=== PATIENT | male | born 1980 | race African-American/Black ===

== ENCOUNTER 2022-06-22 16:18 | Emergency (ER) | payer SELFPAY ==
[2022-06-22] MEDS ORDERED: TETANUS & DIPHTHERIA TOX,ADULT 0.5 ML VIAL ONE (16:59)
[2022-06-22] MEDS ORDERED: LIDOCAINE 1% MPF 5 ML VIAL ONE (16:59)
--- NOTE | 2022-06-22 17:33 | EDPHYS ---
Physician Documentation [facility] Name: Darryl Gautam Age: 41 yrs Sex: Male : 1980 Arrival Date: 06/22/2022 Time: 16:18 Bed 11 Private MD: ED Physician Jeffrey Dubois HPI: 06/22 16:48 This 41 yrs old Black Male presents to ER via Ambulatory with complaints of Laceration jmm to Wrist. 16:48 Is a 41-year-old male with no chronic medical conditions presents emerged part with a jmm laceration to his left wrist. Patient states he accidentally cut himself in using box cutters. Patient is not up-to-date on tetanus immunization. Denies other injury. Historical: - Allergies: 16:48 No Known Allergies; cm9 - Home Meds: 16:48 None [Active]; cm9 - PSHx: 16:48 None; cm9 - Immunization history:: Client reports having NOT received the Covid vaccine. Last tetanus immunization: > 10 years ago unknown. - Social history:: Smoking status: Patient denies any tobacco usage or history of. Patient uses alcohol, only on a social basis. ROS: 16:48 Constitutional: Negative for fever, chills, and weight loss, Cardiovascular: Negative jmm for chest pain, palpitations, and edema, Respiratory: Negative for shortness of breath, cough, wheezing, and pleuritic chest pain. 16:48 Skin: Positive for laceration(s). 16:48 All other systems are negative. Exam: 16:48 Constitutional: This is a well developed, well nourished patient who is awake, alert, jmm and in no acute distress. Head/Face: atraumatic. Eyes: EOMI, no conjunctival erythema appreciated ENT: Moist Mucus Membranes Neck: Trachea midline, Supple Chest/axilla: Normal chest wall appearance and motion. Cardiovascular: Regular rate and rhythm. No edema appreciated Respiratory: Normal respirations, no respiratory distress appreciated Abdomen/GI: Non distended Back: Normal ROM 16:48 Musculoskeletal/extremity: Full range of motion appreciated to the left hand, full radial pulse, compartments are soft, sensation intact to all 5 fingers. Neurovascular intact. 16:48 Skin: 2 cm laceration noted to the left wrist on the radial side. 16:48 Neuro: Orientation: is normal, Mentation: is normal, Memory: is normal. 16:48 Psych: Behavior/mood is pleasant, cooperative. Vital Signs: 16:41 BP 152 / 99; Pulse 94; Resp 16; Temp 98; Pulse Ox 98% on R/A; Weight 97.52 kg; Height 5 cm9 ft. 9 in. ; Pain 2/10; 17:42 BP 138 / 84; Pulse 74; Resp 18; Pulse Ox 99% ; mb9 16:41 Body Mass Index 31.75 (97.52 kg, 175.26 cm) cm9 16:41 Pain Scale: Adult cm9 Laceration: 17:31 Wound Repair of 2cm ( 0.8in ) subcutaneous laceration to left wrist. Distal jmm neuro/vascular/tendon intact. Anesthesia: Local anesthetic administered with 3 mls of 1% lidocaine. Wound prep: Simple cleansing with hibiclenz by sc. Skin closed with 5 5-0 Prolene using simple sutures and sterile technique. Patient tolerated well. MDM: 16:48 Patient medically screened. jmm 20:41 Differential diagnosis: Laceration. Data reviewed: vital signs, nurses notes. jmm Counseling: I had a detailed discussion with the patient and/or guardian regarding: the historical points, exam findings, and any diagnostic results supporting the discharge/admit diagnosis, the need for outpatient follow up, to return to the emergency department if symptoms worsen or persist or if there are any questions or concerns that arise at home. ED course: Patient given wound infection return precautions.. 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 mb9 Exp: 08/05/2023. Lot #: [id number]. } Route: IM; Site: right deltoid; 17:42 Follow up: Response: (VIS) Vaccine information sheet provided today. Questions and/or herber9 concerns addressed. VIS edition date: Sep 30, 2020.; No adverse reaction 17:10 Drug: Lidocaine Infiltration (1 %) 20 ml Volume: 20 ml; Route: Infiltration; mb9 Disposition: 19:35 Co-signature as Attending Physician, Jeffrey TYLER was immediately available on-site ms3 in the Emergency Department for consultation in the care of the patient. Disposition Summary: 06/22/22 17:33 Discharge Ordered Location: Home pratima Condition: Stable pratima Diagnosis - Cutaneous laceration of the left wrist pratima Followup: ariana - With: Private Physician - When: 10 - 14 days - Reason: Staple/Suture removal Discharge Instructions: - Discharge Summary Sheet pratima - Laceration Care, Adult pratima Forms: - Medication Reconciliation Form [facility] - Thank You Letter pratima - Antibiotic Education pratima - Prescription Opioid Use [facility] Signatures: Missael Villaseñor PA PA jmm Sims, Marcus, DO DO ms3 Rupal Marin RN RN mb9 Donna Jackson RN RN cm9
--- NOTE | 2022-06-22 17:33 | ER ---
Nurse's Notes [facility] Name: Darryl Gautam Age: 41 yrs Sex: Male : 1980 Arrival Date: 06/22/2022 Time: 16:18 Bed 11 Private MD: Diagnosis: Cutaneous laceration of the left wrist Presentation: 06/22 16:41 Chief complaint: Patient states: Per pt report, at 1340 accidentally cut left wrist cm9 with box bender, came to ER for increased tingling in left fingers, full range of motion in left hand. Coronavirus screen: Vaccine status: Patient reports being unvaccinated. Ebola Screen: No symptoms or risks identified at this time. Initial Sepsis Screen: Does the patient meet any 2 criteria? No. Patient's initial sepsis screen is negative. Does the patient have a suspected source of infection? No. Patient's initial sepsis screen is negative. 16:41 Method Of Arrival: Ambulatory cm9 16:41 Risk Assessment: Do you want to hurt yourself or someone else? Patient reports no cm9 desire to harm self or others. Onset of symptoms was June 22, 2022. 16:41 Acuity: PANCHO 4 cm9 Triage Assessment: 16:48 General: Appears in no apparent distress. Behavior is calm, cooperative, appropriate cm9 for age. Pain: Complains of pain in left hand and left arm Pain currently is 2 out of 10 on a pain scale. 16:48 Neuro: Level of Consciousness is awake, alert, obeys commands, Oriented to person, cm9 place, time, situation, Moves all extremities. Intact Tingling in left hand. Cardiovascular: Capillary refill < 3 seconds Patient's skin is warm and dry. Respiratory: Airway is patent Respiratory effort is even, unlabored. Injury Description: Laceration sustained to left hand and left wrist. Historical: - Allergies: 16:48 No Known Allergies; cm9 - Home Meds: 16:48 None [Active]; cm9 - PSHx: 16:48 None; cm9 - Immunization history:: Client reports having NOT received the Covid vaccine. Last tetanus immunization: > 10 years ago unknown. - Social history:: Smoking status: Patient denies any tobacco usage or history of. Patient uses alcohol, only on a social basis. Screenin:04 [facility] ED Fall Risk Assessment (Adult) History of falling in the last 3 months, mb9 including since admission No falls in past 3 months (0 pts) Confusion or Disorientation No (0 pts) Intoxicated or Sedated No (0 pts) Impaired Gait No (0 pts) Mobility Assist Device Used No (0 pt) Altered Elimination No (0 pt) Score/Fall Risk Level 0 - 2 = Low Risk Oriented to surroundings, Maintained a safe environment, Educated pt \T\ family on fall prevention, incl call for assistance when getting out of bed. Abuse screen: Denies threats or abuse. Nutritional screening: No deficits noted. Tuberculosis screening: No symptoms or risk factors identified. Assessment: 17:04 Reassessment: SEE TRIAGE ASSESSMENT. mb9 17:42 Reassessment: No changes from previously documented assessment. Patient and/or family mb9 updated on plan of care and expected duration. Pain level reassessed. Patient is alert, oriented x 3, equal unlabored respirations, skin warm/dry/pink. Vital Signs: 16:41 BP 152 / 99; Pulse 94; Resp 16; Temp 98; Pulse Ox 98% on R/A; Weight 97.52 kg; Height 5 cm9 ft. 9 in. ; Pain 2/10; 17:42 BP 138 / 84; Pulse 74; Resp 18; Pulse Ox 99% ; mb9 16:41 Body Mass Index 31.75 (97.52 kg, 175.26 cm) cm9 16:41 Pain Scale: Adult cm9 ED Course: 16:21 Patient arrived in ED. mr 16:41 Missael Villaseñor [facility] 16:41 Jeffrey Dubois DO is Attending Physician. [facility] 16:48 Triage completed. cm9 16:48 Arm band placed on right wrist. cm9 16:52 Rupal Marin, KELSEY is Primary Nurse. mb9 17:04 Bed in low position. Call light in reach. Side rails up X 1. Client placed on mb9 continuous cardiac and pulse oximetry monitoring. NIBP monitoring applied. 17:04 No provider procedures requiring assistance completed. Patient did not have IV access mb9 during this emergency room visit. 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 mb9 Exp: 08/05/2023. Lot #: [id number]. } Route: IM; Site: right deltoid; 17:42 Follow up: Response: (VIS) Vaccine information sheet provided today. Questions and/or mbVineet concerns addressed. VIS edition date: Sep 30, 2020.; No adverse reaction 17:10 Drug: Lidocaine Infiltration (1 %) 20 ml Volume: 20 ml; Route: Infiltration; mb9 Medication: 17:04 VIS not applicable for this client. mb9 Outcome: 17:33 Discharge ordered by MD. lane 17:42 Discharged to home ambulatory. mb9 17:42 Condition: stable 17:42 Discharge instructions given to patient, Instructed on discharge instructions, follow up and referral plans. Demonstrated understanding of instructions, follow-up care. 17:43 Patient left the ED. mb9 Signatures: Missael Villaseñor PA PA jmm Rivera, Mary mr Breneman, Rupal Frank, RN RN mb9 Donna Jackson RN RN cm9
[2022-06-22 18:08] VITALS: TEMP 98
[2022-06-22 18:10] VITALS: BP 138/84; O2SAT 99
== END 2022-06-22 17:43 | disposition home or self-care (01) ==
LOC: ER 16:18
PROC: 0HQEXZZ Repair Left Lower Arm Skin, External Approach (ICD-10-PCS; principal; 2022-06-22)
DX: S61.512A Laceration without foreign body of left wrist, initial encounter (principal); Z23 Encounter for immunization
CPT/HCPCS: 90714; J2001